=== PATIENT | male | born 1950 | race Caucasian/White ===

== ENCOUNTER → 2020-02-24 10:26 | Outpatient (CLI) | payer MEDICARE, OTHER, SELFPAY ==
--- NOTE | 2020-02-24 | DI.RAD.S_ITS ---
PROCEDURE: XR CHEST 2V INDICATIONS: Shortness of breath TECHNIQUE: 2 views of the chest were acquired. COMPARISON: None. FINDINGS: Surgical changes and devices: None. Lungs and pleura: Lungs are clear. No pleural effusions or pneumothorax. Mediastinum: Mediastinal contours are normal. Heart size is normal. Bones and chest wall: No suspicious bony abnormalities. Soft tissues appear unremarkable. IMPRESSION: No acute cardiopulmonary disease process. Dictated by: Cinthya Serna MD, PhD on 02/24/2020 at 17:55 Approved by: Cinthya Serna MD, PhD on 02/24/2020 at 17:55
== END ==
PROVIDERS: PCP Family Medicine; Referring Provider Family Medicine; Visit Provider Family Medicine
DX: R06.02 Shortness of breath (principal)
CPT/HCPCS: 71046

== ENCOUNTER → 2020-03-11 09:09 | Outpatient (CLI) | payer MEDICARE, OTHER, SELFPAY ==
--- NOTE | 2020-03-11 | DI.US.S_ITS ---
PROCEDURE: US CAROTID DOPPLER BI INDICATIONS: PRE-HTN; PVD TECHNIQUE: Color and pulse Doppler interrogation was performed of both carotid systems, with image documentation and velocity measurements. COMPARISON: None. FINDINGS: Stenosis calculations are based on SRU (Society [employer] Radi[employer] in Ultras[employer]) criteria. Right side: Brachial blood pressure: 157/86 mm Hg. Common carotid artery peak systolic velocity: 73 cm/sec. Internal carotid artery peak systolic velocity: 62 cm/sec. Internal carotid artery end diastolic velocity: 20 cm/sec. External carotid artery peak systolic velocity: 71 cm/sec. ICA/CCA peak systolic ratio: 0.9 . Calle scale imaging description: Mild atheromatous plaque is present at the carotid bifurcation. Percent internal carotid artery stenosis: Less than 50% . Vertebral artery: Flow direction is antegrade. Left side: Brachial blood pressure: 159/86 mm Hg. Common carotid artery peak systolic velocity: 110 cm/sec. Internal carotid artery peak systolic velocity: 100 cm/sec. Internal carotid artery end diastolic velocity: 20 cm/sec. External carotid artery peak systolic velocity: 97 cm/sec. ICA/CCA peak systolic ratio: 0.9 . Calle scale imaging description: Mild atheromatous plaque and calcification is present at the carotid bifurcation. Percent internal carotid artery stenosis: Less than 50% . Vertebral artery: Flow direction is antegrade. IMPRESSION: Less than 50% stenosis of the bilateral internal carotid arteries. Dictated by: Alejandra Carrillo M.D. on 03/11/2020 at 10:32 Approved by: Alejandra Carrillo M.D. on 03/11/2020 at 10:41
== END ==
PROVIDERS: PCP Family Medicine; Referring Provider Family Medicine; Visit Provider Family Medicine
DX: I65.23 Occlusion and stenosis of bilateral carotid arteries (principal); I73.89 Other specified peripheral vascular diseases; R03.0 Elevated blood-pressure reading, without diagnosis of hypertension; R42 Dizziness and giddiness
CPT/HCPCS: 93880

== ENCOUNTER → 2022-05-29 09:45 | Outpatient (CLI) | payer MEDICARE, OTHER, SELFPAY ==
[2022-05-29 12:06] LABS: COVID19 -Nasal RAPID Negative (Negative)
== END ==
PROVIDERS: PCP Internal Medicine; Visit Provider Surgery
DX: Z20.822 Contact with and (suspected) exposure to COVID-19 (principal); Z01.812 Encounter for preprocedural laboratory examination
CPT/HCPCS: 87635; C9803

== ENCOUNTER 2022-05-30 06:38 | Day surgery (SDC) | payer MEDICARE, OTHER, SELFPAY ==
[2022-05-25 07:24] VITALS: BMI 22.6
[2022-05-30 07:07] VITALS: BMI 23.0
[2022-05-30 07:10] VITALS: BP 160/80; PULSE 72; RESP 24; TEMP 36.5; O2SAT 100
[2022-05-30] MEDS: LACTATED RINGERS 1,000 ML 42 ML IV (07:21)
--- NOTE | 2022-05-30 07:59 | PM.PREOP ---
Pre-operative Note Interval Note History & Physical reviewed/Exam performed by Physician: Yes Changes to H&P: No
[2022-05-30] MEDS: CEFAZOLIN 2 GM/100 ML PREMIX 100 ML IV (08:10)
--- NOTE | 2022-05-30 08:41 | SUR.OPER ---
Supine on padded OR bed, head on pillow, arms secured on padded arm boards at <90 degrees abduction, legs uncrossed, safety belt at thigh, tape over blanket over lower legs. Gel pad under bilateral heels.
[2022-05-30] MEDS: BUPIVACAINE 0.5% (PF) 30 ML, EPINEPHrine 0.15 MG INJ (08:52)
[2022-05-30 10:07] VITALS: BP 112/66; PULSE 59; RESP 16; TEMP 36.8; O2SAT 99
[2022-05-30 10:12] VITALS: BP 112/72; PULSE 56; RESP 23; O2SAT 99
[2022-05-30 10:17] VITALS: BP 122/70; PULSE 60; RESP 26; O2SAT 100
[2022-05-30 10:20] VITALS: BP 117/66; PULSE 58; RESP 16; TEMP 36.1; O2SAT 100
[2022-05-30 10:50] VITALS: BP 147/85; PULSE 62; RESP 12; O2SAT 100
--- NOTE | 2022-05-30 13:27 | P.OP_ITS ---
Procedure & Clinicians Procedure: Right inguinal hernia repair Same procedure as scheduled: Yes Indications: Mr. Carvalho presented to my office with symptomatic right inguinal hernia. I discussed with him risks benefits and alternatives and he wished to proceed with an open hernia repair under local and monitored anesthetic care. Surgeon: Ruby eBrry Click Yes if Unassisted: Yes Anesthesia Type: MAC +/- and Local Operative Notes Findings: Patient was taken to the operating room and placed in a supine position on the operating room table. Preoperative antibiotics were administered bilateral SCDs in place and running. A time-out was performed. Some sedation was provided for the patient and a local anesthetic was infused. The patient was very comfortable. A incision was made over the inguinal area, and carried down through the subcutaneous tissue the vein was doubly tied and ligated with 3-0 Vicryl suture. The dissection was continued further to the anterior abdominal wall the fascia which was then incised with a 15 blade scalpel and Metzenbaum scissors were used to open the fascia to the external ring. A self containing a retractor was then placed. A [place] drain was used to encircle the cord and cord structures and retract those. There was a lipoma of the cord which was removed but not sent as a specimen. The large direct hernia sac was visible abutting the cord structures this was dissected free and pushed back into the abdomen. The direct hernia defect was very large. In fact almost the entire floor of the inguinal canal was compromised. I specifically searched for an indirect component of this hernia and none was found. I cleared away the Jhonny's ligament and the inguinal ligament and placed a mesh which I secured with 3-0 Prolene at the Jhonny's ligament and using a running suture attached the inferior portion of the mesh to the inguinal ligament in the normal way. I then made in cut in the mesh and wrapped it around the cord structures securing it with a single interrupted 3-0 Prolene suture. The superior portion of the mesh was laid flat and the floor of the inguinal canal was so floppy that I was able to place this mesh actually folded somewhat under the internal oblique muscle I secured the mesh in the normal way to the internal oblique with int errupted loosely tied 3-0 Vicryl sutures. I then used the same sutures to tack the internal oblique down towards the inguinal ligament. Again this was only possible because of the severe laxity of the internal oblique from the size of the hernia defect. Otherwise the repair was unremarkable and the operative site was hemostatic the mesh was in a very good position and looked great. I closed the external oblique fascia with a running 3-0 Vicryl suture in the normal way and the Ashu's fascia was closed with an interrupted 3-0 Vicryl the skin was closed with a 4-0 Monocryl and dressed with Steri-Strips. Additional local anesthetic was infused around the area before the cessation of the case. There were no complications and the patient went in good condition to the postoperative care unit. Specimen(s): none sent Blood products transfused: none Complications: none Post-operative Disposition: PACU
--- NOTE | 2022-05-30 14:06 | SUR.PHASEII ---
Patient ambulated to bathroom and voided without difficulty. Tolerated snacks and beverages. Provided verbal/written discharge instructions. patient stated understanding. Discharged patient by wheelchair to private vehicle in stable condition. See flowsheet for assessment details.
== END 2022-05-30 10:50 | disposition home or self-care (01) ==
PROVIDERS: PCP Internal Medicine; Referring Provider Surgery; Visit Provider Surgery
PROC: (CPT 49505; principal; 2022-05-30 07:45)
DX: K40.90 Unilateral inguinal hernia, without obstruction or gangrene, not specified as recurrent (principal)
CPT/HCPCS: 49505; 00830; J0171; J0690; J2250; J2405; J2704; J3010